=== PATIENT | female | born 1995 | race Two or more races ===

== ENCOUNTER 2019-08-21 15:13 | Emergency (ER) | payer OTHER ==
[~2019-08-21] VITALS: Ht 157.5 cm; Wt 52.2 kg
[2019-08-21 17:00] VITALS: BP 107/59
--- NOTE | 2019-08-21 17:02 | NUR ---
ED Nurse Note: PT AMBULATED TO ED C/O VOMITING TWICE TODAY FOR X 3 DAYS. UNSURE IF . URINE SPECIMEN COLLECETED SENT TO LAB
[2019-08-21 18:14] LABS: APPEARANCE,URINE CLEAR; BILIRUBIN, URINE NEGATIVE (NEGATIVE); GLUCOSE, URINE (UA) NEGATIVE (NEGATIVE); KETONES,URINE 2+ (NEGATIVE); LEUKOCYTE ESTERASE ,URINE NEGATIVE (NEGATIVE); NITRITE,URINE NEGATIVE (NEGATIVE); PH,URINE 8 (4.5-8.0); PROTEIN,URINE NEGATIVE (NEGATIVE); UROBILINOGEN,URINE NORMAL MG/DL (0.0-1.0)
[2019-08-21 18:20] LABS: COLOR,URINE YELLOW
--- NOTE | 2019-08-21 18:36 | NUR ---
ED Nurse Note: pt states no n/v at this time. relates feels hungry. pt awaiting urine results
--- NOTE | 2019-08-21 18:37 | Emergency Room Report ---
History of Present Illness General Chief Complaint: Vomiting Source: Patient Present Illness HPI 23-year-old female presents to the emergency department complaining of nausea, vomiting, and diarrhea x3 days. Patient reports 2 episodes of vomiting today and 2 loose bowel movements yesterday. She denies pain or abdominal tenderness. Patient denies blood in the vomit or stool. She denies black tarry stools. She denies abdominal pain or cramping at this time. She reports she is suspicious for . She reports she is currently breast-feeding and she gave in February 2018. She states she is not on any for of control. Patient states her periods are irregular because she is still breast-feeding. Patient also reports history of Crohn's disease and states that she is 3 days past due of receiving her Humira injection. Patient is also reporting increasing fatigue she states she has nausea and hypersensitivity to all types of smells. Patient reports that she is concerned about as she is exhibiting symptoms for which she exhibited in the past when she was . She denies fevers or chills. Denies recent travel or ill contacts with similar symptoms. She denies any aggravating or relieving factors at this time. She denies headache, dizziness, palpitations, CP, or syncope. She denies dysuria, hematuria, urinary frequency or urgency. She denies vaginal discharge. Allergies: Coded Allergies: No Known Allergies (Unverified , 08/21/19) Patient History Past Medical History: see triage record, other - Crohn's disease Past Surgical History: none Pertinent Family History: none Last Menstrual Period: 07/21/2019 Now: No Reviewed Nursing Documentation: PMH: Agreed; PSxH: Agreed Nursing Documentation-PMH Past Medical History: No History, Except For Review of Systems All Other Systems: negative except mentioned in HPI Physical Exam Vital Signs Date Time Temp Pulse Resp B/P (MAP) Pulse Ox O2 Delivery O2 Flow Rate FiO2 08/21/19 15:24 98.4 96 15 101/63 (76) 96 Room Air Sp02 EP Interpretation: reviewed, normal General Appearance: no apparent distress, alert, GCS 15, non-toxic Head: normocephalic, atraumatic Eyes: bilateral eye normal inspection, bilateral eye PERRL ENT: hearing grossly normal, normal voice Neck: full range of motion Respiratory: chest non-tender, lungs clear, normal breath sounds, no respiratory distress, no wheezing, speaking full sentences Cardiovascular #1: regular rate, rhythm Gastrointestinal: normal bowel sounds, non tender, soft, no peritonitis, non- distended, no guarding Rectal: deferred Genitourinary: normal inspection, no CVA tenderness Musculoskeletal: normal range of motion, gait/station normal, non-tender Neurologic: alert, motor strength/tone normal, oriented x3, sensory intact, responsive, speech normal Psychiatric: judgement/insight normal Skin: normal color, normal turgor Medical Decision Making PA Attestation Dr. Osorio Is my supervising Physician whom patient management has been discussed with. Diagnostic Impression: Primary Impression: Nausea vomiting and diarrhea Additional Impression: Qualified Codes: Z34.90 - Encounter for supervision of normal , unspecified, unspecified trimester ER Course 23-year-old female presents to the emergency department complaining of nausea, vomiting, diarrhea x3 days. Patient reports 3 episodes of vomiting today and 2 loose bowel movements yesterday. She denies pain. Patient denies blood in the vomit or stool. She denies black tarry stools. She denies abdominal pain or cramping at this time. She reports she is currently breast-feeding and she gave in February 2018. Patient states her periods are regular because she is still breast-feeding. Patient also reports history of Crohn's disease and states that she is 3 days past due of receiving her Humira injection. Patient is also reporting increasing fatigue she states she has nausea and hypersensitivity to all types of smells. Patient reports that she is concerned about as she is exhibiting symptoms for which she exhibited in the past when she was . She denies fevers or chills. Denies recent travel or ill contacts with similar symptoms. She denies any aggravating or relieving factors at this time. She denies headache or syncope. She denies dysuria, hematuria, urinary frequency or urgency. She denies vaginal discharge. Ddx considered but are not limited to GE, colitis, acute appy, SBO, Cyclical Vomiting secondary to THC, * Vital signs: pt. is afebrile, H&PE are most consistent with GE most likely viral in etiology, no evidence to suggest acute abdomen on physical exam. ORDERS: -Urine Hcg: Positive -UDS: Unremarkable other than some RBC's ED INTERVENTIONS: -Reglan 10mg PO Since this patient is not complaining of pain or vaginal bleeding/dc at this time, she is stable for [employer] follow-up and does not require emergent ultrasonography. -The pt. is able to keep down oral fluids, medications and even some fruit. -I do not identify an emergent condition at this time. With current presentation , pt. is stable for close outpatient follow up and conservative treatment. D/ w pt. to return promptly to ED with worsening or new symptoms.- Pt. verbalizes' understanding and agreement with proposed treatment plan. DISCHARGE: At this time pt. is stable for d/c to home. Will provide printed patient care instructions, and any necessary prescriptions. Care plan and follow up instructions have been discussed with the patient prior to discharge. Labs Test 08/21/19 17:02 Urine Color Yellow Urine Appearance Clear Urine pH 8 (4.5-8.0) Urine Specific [place] 1.010 (1.005-1.035) Urine Protein Negative (NEGATIVE) Urine Glucose (UA) Negative (NEGATIVE) Urine Ketones 2+ (NEGATIVE) Urine Blood 3+ (NEGATIVE) Urine Nitrite Negative (NEGATIVE) Urine Bilirubin Negative (NEGATIVE) Urine Urobilinogen Normal MG/DL (0.0-1.0) Urine Leukocyte Esterase Negative (NEGATIVE) Urine RBC 10-15 /HPF (0 - 2) Urine WBC 0-2 /HPF (0 - 2) Urine Squamous Epithelial Cells Few /LPF (NONE/OCC) Urine Bacteria Few /HPF (NONE) Urine HCG, Qualitative Positive (NEGATIVE) Last Vital Signs Date Time Temp Pulse Resp B/P (MAP) Pulse Ox O2 Delivery O2 Flow Rate FiO2 08/21/19 17:00 88 15 Room Air 08/21/19 17:00 98.4 107/59 99 Status: improved Disposition: HOME, SELF-CARE Condition: Stable Scripts Metoclopramide Hcl* (REGLAN*) 5 Mg Tablet 5 MG ORAL EVERY 6 HOURS for Vomiting, #20 TAB Prov: Amie Steinberg 08/21/19 Vit #91/Fe Fum/Fa/Dha ( + DHA COMBO PACK) 1 Each Combo..pkg 1 EACH PO DAILY for 30 Days, #1 PACK 3 Refills Prov: Amie Steinberg 08/21/19 Departure Forms: Return to Work Return to Work Date: Aug 23, 2019 Work Restrictions: None Other Restrictions: please excuse from Wednesday on. May return Sooner if Symptoms have resolved. Return to Full Activity: Aug 23, 2019 Patient Instructions: First Trimester of , [id number], Nausea and Vomiting, Adult Additional Instructions: Take medications as directed. Follow up with a OBGYN within 3-5 days, even if your symptoms have resolved. Return sooner to ED if new symptoms occur, or current symptoms become worse. - Please note that this Emergency Department Report was dictated using [employer] nurse technology software, occasionally this can lead to erroneous entry secondary to interpretation by the dictation equipment. Amie Steinberg Aug 21, 2019 18:37
--- NOTE | 2019-08-21 18:47 | NUR ---
ED Nurse Note: pt desiring to go into wr at this time. will call when further dispo avail
--- NOTE | 2019-08-21 19:06 | NUR ---
ED Nurse Note: pt relates she has just received a phone call from her pmd office and that they state she is . pt relates she just tried to eat something and threw it up. awaiting further dispo
[2019-08-21] MEDS ORDERED: REGLAN5 MG ORAL (19:33)
[2019-08-21] MEDS ORDERED: PRENATAL + DHA1 EAC1 PO (19:33)
--- NOTE | 2019-08-21 19:45 | NUR ---
ER DISCHARGE NOTE: Patient is cleared to be discharged per ERMD, pt is aox4, on room air, with stable vital signs. pt was given dc and prescription instructions, pt was able to verbalize understanding, pt id band removed without complications. pt is able to ambulate with steady gait. pt took all belongings.
[2019-08-21 19:55] VITALS: BP 107/59
== END 2019-08-21 19:55 | disposition home or self-care (01) ==
LOC: EMR 19:25
DX: O21.8 Other vomiting complicating pregnancy (principal); K50.90 Crohn's disease, unspecified, without complications; Z3A.00 Weeks of gestation of pregnancy not specified
CPT/HCPCS: 81003; 81025; Z7502; 99283